=== PATIENT | male | born 1960 | race Caucasian/White ===

== ENCOUNTER 2020-06-04 18:32 | Emergency (ER) | payer OTHER, SELFPAY ==
[2020-06-04] VITALS (10 sets, daily range): BP systolic 140–165; BP diastolic 66–76; PULSE 52–64; RESP 14–22; TEMP 36.6; O2SAT 91–95
--- NOTE | 2020-06-04 18:40 | DI.RAD.S_ITS ---
PROCEDURE: XR CHEST 1V INDICATIONS: chest pain TECHNIQUE: One view of the chest was acquired. COMPARISON: [facility], CT, CT ANGIO NECK, 06/04/2020, 19:19. [facility], CR, XR CHEST 1 VIEW, 04/26/2020, 22:25. FINDINGS: Surgical changes and devices: None. Lungs and pleura: Prominent perihilar interstitial opacities are likely due to under penetration versus mild CHF. No pleural effusions or pneumothorax. Mediastinum: Mediastinal contours appear normal. Heart size is normal. Bones and chest wall: No suspicious bony lesions. Overlying soft tissues appear unremarkable. IMPRESSION: Prominent perihilar interstitial opacities are likely due to under penetration of the study, however mild CHF could also cause this appearance. Dictated by: Soren Garcia M.D. on 06/04/2020 at 19:43 Approved by: Soren Garcia M.D. on 06/04/2020 at 19:47
--- NOTE | 2020-06-04 18:54 | ED.GENADULT ---
HPI - General Adult General Chief complaint: Shortness of Breath/Dyspnea Stated complaint: THROAT IS TIGHT LUMP RIGHT SIDE, CHEST FEELS TIGHT Time Seen by Provider: 06/04/20 18:52 Source: patient Mode of arrival: Ambulatory Limitations: no limitations History of Present Illness HPI narrative: 59-year-old male who is on anticoagulation secondary to pulmonary embolisms here for evaluation of swelling the right side of his neck. States that he 1st noticed it this morning. Does have a fullness in this side. Still is having some shortness of breath but nothing new since his diagnosis of pulmonary embolism. His last INR check was approximately 1 week ago and it was slightly elevated and he was told to take half of his medication the next day and then restarted like normal. He did do this. He stated that in the past he has had a ?hematoma? on the right side of his neck that had to be drained. This was when he was not on anticoagulation and he was concerned that potentially that was what was going on today. Related Data Home Medications Medication Instructions Recorded Confirmed atorvastatin 10 mg PO DAILY 06/04/20 06/04/20 buprenorphine HCl 32 mg SUBLINGUAL DAILY 06/04/20 06/04/20 clonazepam 1 mg PO TID PRN 06/04/20 06/04/20 mirtazapine 30 mg PO DAILY 06/04/20 06/04/20 rizatriptan 10 mg PO DAILY PRN 06/04/20 06/04/20 testosterone cypionate See Rx Instructions .ROUTE .COMPLEX 06/04/20 06/04/20 warfarin 5 mg PO DAILY 06/04/20 06/04/20 Allergies Allergy/AdvReac Type Severity Reaction Status Date / Time No Known Drug Allergies Allergy Verified 06/04/20 19:13 Review of Systems Constitutional Constitutional: Denies fever(s) and Denies headache(s) ENT Ears, Nose, Mouth, and Throat: Denies dental pain, Denies vertigo, Denies dizziness, Denies headache(s), Reports neck mass, Denies sinus pressure and Reports throat swelling Cardiovascular Cardiovascular: Denies chest pain and Reports dyspnea Respiratory Respiratory: Reports dyspnea Musculoskeletal Musculoskeletal: Denies arthralgias and Denies myalgias Integumentary/Breasts Skin/Breast: Denies rash Neurologic Neurologic: Denies vertigo, Denies dizziness and Denies headache(s) Hematologic/Lymphatic On Anticoagulants: Yes Allergic/Immunologic Allergic/Immunologic: Denies urticaria and Reports throat swelling Patient History Medical History Migraine Pulmonary embolism Social History lives independently: Yes Exam Initial Vital Signs Initial Vital Signs: Vital Signs Pulse Rate 64 06/04/20 18:41 Pulse Oximetry 95 06/04/20 18:41 Const General: cooperative and comfortable Limitations: mental status not altered HENAL Head: normal to inspection and normocephalic Neck Neck: No anterior neck swelling, No tender, No torticollis and No tracheal deviation Lymphatic: No lymphadenopathy Other: Does have a fullness feeling on the right inferior portion of his neck that is soft. Hard to differentiate the edges. Chest Chest: No crepitus and No tenderness Resp Effort & Inspection: normal respiratory effort Auscultation: clear to auscultation bilaterally Cardio Rate: regular rate Rhythm: regular rhythm Skin Lesions: no lesions Rashes: no rashes Extrem General: normal to inspection and capillary refill normal Psych Appearance: grossly normal and well kempt Course Orders Ordered: ED Orders 06/04/20 15:48 COVID19 Stat 06/04/20 18:40 XR chest 1V Stat EKG-12 Lead Stat 06/04/20 18:45 Complete Blood Count AUTO DIFF Stat Comprehensive Metabolic Panel Stat Lipase Stat Partial Thromboplastin Time Stat Prothrombin Time INR Stat Troponin & CK Cardiac Panel Stat Type and Screen Stat 06/04/20 18:54 CT angio neck Stat Vital Signs Vital signs: Vital Signs - 8 hr 06/04/20 18:41 06/04/20 18:45 06/04/20 18:47 Temperature Pulse Rate 64 59 L 60 Respiratory Rate 21 Blood Pressure 152/72 H Pulse Oximetry 95 95 95 06/04/20 18:52 06/04/20 19:00 06/04/20 19:15 Temperature 97.9 F Pulse Rate 57 L 57 L 55 L Respiratory Rate 22 14 14 Blood Pressure 152/72 H 146/72 H 140/75 Pulse Oximetry 91 93 92 06/04/20 19:33 06/04/20 19:34 06/04/20 19:45 Temperature Pulse Rate 54 L 53 L 52 L Respiratory Rate 15 16 Blood Pressure 165/76 H Pulse Oximetry 95 94 93 06/04/20 19:46 Temperature Pulse Rate 54 L Respiratory Rate 18 Blood Pressure 146/66 H Pulse Oximetry 93 Medical Decision Making Lab Data Lab results reviewed: Yes I reviewed the patient's lab results. Result diagrams: 06/04/20 18:45 06/04/20 18:45 Labs: Lab Results 06/04/20 06/04/20 06/04/20 Range/Units 15:48 18:45 18:45 WBC 7.3 (4.5-11.0) X10^3/uL RBC 5.09 (4.5-5.9) X10^6/uL Hgb 15.9 (13.5-17.5) g/dL Hct 45.9 (41-53) % MCV 90.3 (80-100) fL MCH 31.3 (26-34) PG MCHC 34.7 (30-36) % RDW 13.2 (11.6-14.8) % Plt Count 226 (150-400) X10^3/uL Neut % (Auto) 54.9 (50-75) % Lymph % (Auto) 33.4 (25-40) % [place] % (Auto) 8.2 (3-14) % Eos % (Auto) 2.8 (2-4) % Baso % (Auto) 0.7 (0-2) % Neut # (Auto) 4000 (9533-4581) /uL Lymph # (Auto) 2500 (8520-4873) /uL [place] # (Auto) 600 (0-900) /uL Eos # (Auto) 200 (0-450) /uL Baso # (Auto) 100 (0-100) /uL PT 41.7 H (10.1-12.7) SECONDS INR 3.6 H (0.9-1.3) APTT 72 H (26.4-36.2) SECONDS Sodium (137-145) mmol/L Potassium (3.4-5.1) mmol/L Chloride (98-107) mmol/L Carbon Dioxide (22-32) mmol/L BUN (9-20) mg/dL Creatinine (0.66-1.25) mg/dL Estimated GFR (>60) mL/min BUN/Creatinine Ratio (6-22) Glucose (70-100) mg/dL Calcium (8.4-10.2) mg/dL Total Bilirubin (0.2-1.3) mg/dL AST (17-59) IU/L ALT (<50) IU/L Alkaline Phosphatase (38-126) U/L Total Creatine Kinase (55-170) U/L CK-MB (CK-2) (<2.37) ng/mL CK-MB (CK-2) Rel Index (1.5-5.0) % Troponin I (0.01-0.034) ng/mL Total Protein (6.3-8.2) g/dL Albumin (3.5-5.0) g/dL Globulin (1.7-4.1) g/dL Albumin/Globulin Ratio (1.0-2.8) Lipase (23-300) U/L SARS-CoV-2 (PCR) Negative (Negative) Blood Type Antibody Screen 06/04/20 06/04/20 Range/Units 18:45 18:45 WBC (4.5-11.0) X10^3/uL RBC (4.5-5.9) X10^6/uL Hgb (13.5-17.5) g/dL Hct (41-53) % MCV (80-100) fL MCH (26-34) PG MCHC (30-36) % RDW (11.6-14.8) % Plt Count (150-400) X10^3/uL Neut % (Auto) (50-75) % Lymph % (Auto) (25-40) % [place] % (Auto) (3-14) % Eos % (Auto) (2-4) % Baso % (Auto) (0-2) % Neut # (Auto) (0382-9323) /uL Lymph # (Auto) (6588-8885) /uL [place] # (Auto) (0-900) /uL Eos # (Auto) (0-450) /uL Baso # (Auto) (0-100) /uL PT (10.1-12.7) SECONDS INR (0.9-1.3) APTT (26.4-36.2) SECONDS Sodium 136 L (137-145) mmol/L Potassium 3.9 (3.4-5.1) mmol/L Chloride 99 (98-107) mmol/L Carbon Dioxide 30 (22-32) mmol/L BUN 18 (9-20) mg/dL Creatinine 1.08 (0.66-1.25) mg/dL Estimated GFR > 60.0 (>60) mL/min BUN/Creatinine Ratio 16.7 (6-22) Glucose 165 H (70-100) mg/dL Calcium 9.3 (8.4-10.2) mg/dL Total Bilirubin 0.7 (0.2-1.3) mg/dL AST 40 (17-59) IU/L ALT 47 (<50) IU/L Alkaline Phosphatase 104 (38-126) U/L Total Creatine Kinase 144 (55-170) U/L CK-MB (CK-2) 0.78 (<2.37) ng/mL CK-MB (CK-2) Rel Index 0.5 L (1.5-5.0) % Troponin I < 0.012 (0.01-0.034) ng/mL Total Protein 8.2 (6.3-8.2) g/dL Albumin 4.6 (3.5-5.0) g/dL Globulin 3.6 (1.7-4.1) g/dL Albumin/Globulin Ratio 1.3 (1.0-2.8) Lipase 27 (23-300) U/L SARS-CoV-2 (PCR) (Negative) Blood Type O Negative Antibody Screen Negative Imaging Data Chest x-ray: Radiologist's Impression: [address] [id number] ReportSigned Patient: Hong Herron R#: [id number]: 2Acct:[id number]/Sex: 59 / MDate of Service: 06/04/20Loc: EDAccession Number: [id number] Procedure: XR chest 1V Ordering Provider: Evan Gutierrez D.O. PROCEDURE: XR CHEST 1V INDICATIONS: chest pain TECHNIQUE: One view of the chest was acquired. COMPARISON: [facility], CT, CT ANGIO NECK, 06/04/2020, 19:19. [facility], CR, XR CHEST 1 VIEW, 04/26/2020, 22:25. FINDINGS: Surgical changes and devices: None. Lungs and pleura: Prominent perihilar interstitial opacities are likely due to under penetration versus mild CHF. No pleural effusions or pneumothorax. Mediastinum: Mediastinal contours appear normal. Heart size is normal. Bones and chest wall: No suspicious bony lesions. Overlying soft tissues appear unremarkable. IMPRESSION: Prominent perihilar interstitial opacities are likely due to under penetration of the study, however mild CHF could also cause this appearance. Dictated by: Soren Garcia M.D. on 06/04/2020 at 19:43 Approved by: Soren Garcia M.D. on 06/04/2020 at 19:47 CTA of neck: Radiologist's Impression: [address] [id number] Scan ReportSigned Patient: Hong Herron VMR#: [id number]: [id number]:[id number]/Sex: 59 / MDate of Service: 06/04/20Loc: EDAccession Number: [id number] Procedure: CT angio neck Ordering Provider: Evan Gutierrez D.O. PROCEDURE: CT ANGIO NECK INDICATIONS: Right side neck swelling TECHNIQUE: After the administration of intravenous contrast, 1.5 mm axial sections acquired from the aortic arch to the [place] of [place]. Maximum intensity projection (MIP) reformats were then performed. COMPARISON: [facility], CT, CT ANGIO CHEST PE, 04/26/2020, 22:40. FINDINGS: Image quality: Excellent. Carotid system: The great vessels demonstrate a conventional anatomy as they arise from the aortic arch. The origins of the common carotid arteries appear patent. The common carotid arteries demonstrate normal calibers and courses. The bifurcation regions appear normal bilaterally. The internal carotid arteries demonstrate normal caliber and course. Posterior circulation: The origins of the vertebral arteries appear patent. The more superior portions of the vertebral arteries demonstrate normal course and caliber. They join to form a normal appearing basilar artery. Soft tissues: Visualized neck soft tissues demonstrate no suspicious abnormalities. Thyroid gland demonstrates a 1.4 x 1.4 x 2.0 centimeter hypodensity. Recommend thyroid ultrasound. The lungs demonstrate subtle diffuse patchy ground-glass opacities which is nonspecific and is probably due to respiratory motion. Bones: No suspicious bony lesions. Visualized cervical spine appears normally aligned. IMPRESSION: 1. No neck mass or other abnormality to explain right-sided neck swelling. 2. Right thyroid nodule as above. Recommend thyroid ultrasound. Any quantitative stenosis measurements were performed using the NASCET criteria. Dictated by: Soren Garcia M.D. on 06/04/2020 at 19:48 Approved by: Soren Garcia M.D. on 06/04/2020 at 19:54 ECG Data Attestation: I personally reviewed and interpreted this ECG as follows: Prior ECG tracings: not available for review Interpretation: Sinus rhythm Left axis deviation Left anterior fascicular block Ventricular rate is [address] T wave changes MDM Narrative Medical decision making narrative: Patient is not in respiratory distress. He does have a fullness on the right inferior portion of his neck where he states he feels the symptoms that brought him in today. The CT scan of his neck shows no signs of abscess. Shows no signs of hematoma. Does show a right sided thyroid nodule which I did discuss with him and told him he need to talk with his primary doctor regarding this to discuss further workup to include ultrasound. His INR was elevated today. He states that was very similar to what was 1 week ago. He is going to skip his dose of Coumadin tomorrow and then restarted it like normal and then talk with his provider about retesting. His fullness in his neck could potentially be the thyroid nodule. He is tolerating oral secretions. Feel we can discharge patient home and have him follow up and he was given return precautions and follow-up instructions. He expressed understanding and agreement. Discharge Plan Departure Patient Disposition: Home Clinical Impression: Thyroid nodule, Supratherapeutic INR Instructions: DI for Thyroid Nodule Activity Restrictions/Additional Instructions: I recommend that you contact your primary doctor to discuss the indications for an outpatient thyroid ultrasound. Your INR was also elevated today. I recommend you skip your dose tomorrow and then on start taking it like normal. Keep all of your schedule medical appointments. Return to the emergency department for any new or worsening symptoms Prescriptions: No Action atorvastatin 10 mg tablet 10 mg PO DAILY RF: 0 rizatriptan 10 mg tablet 10 mg PO DAILY PRN (Reason: Migraine Headache) RF: 0 clonazepam 1 mg tablet 1 mg PO TID PRN (Reason: Anxiety) RF: 0 warfarin 2.5 mg tablet 5 mg PO DAILY RF: 0 mirtazapine 30 mg tablet 30 mg PO DAILY RF: 0 testosterone cypionate 200 mg/mL oil See Rx Instructions .ROUTE .COMPLEX RF: 0 buprenorphine HCl 8 mg tablet, sublingual 32 mg SUBLINGUAL DAILY RF: 0
[2020-06-04 18:56] LABS: Add Manual Diff / Slide Review NO; Basophils Absolute Auto 100 /uL (0-100); Basophils Percent Auto 0.7 % (0-2); Eosinophils Absolute Auto 200 /uL (0-450); Eosinophils Percent Auto 2.8 % (2-4); Hematocrit 45.9 % (41-53); Hemoglobin 15.9 g/dL (13.5-17.5); Lymphocytes Absolute Auto 2500 /uL (1100-4500); Lymphocytes Percent Auto 33.4 % (25-40); Mean Corpuscular HGB Conc 34.7 % (30-36); Mean Corpuscular Hemoglobin 31.3 PG (26-34); Mean Corpuscular Volume 90.3 fL (80-100); Monocytes Absolute Auto 600 /uL (0-900); Monocytes Percent Auto 8.2 % (3-14); Neutrophils Absolute Auto 4000 /uL (1500-7000); Neutrophils Percent Auto 54.9 % (50-75); Platelet Count 226 X10^3/uL (150-400); Red Blood Cell Count 5.09 X10^6/uL (4.5-5.9); Red Cell Distribution Width 13.2 % (11.6-14.8); White Blood Cell Count 7.3 X10^3/uL (4.5-11.0)
--- NOTE | 2020-06-04 18:56 | PC.NURSE ---
Swelling to right neck appreciated by palpation. No JVD, No airway obstructions. Pt states that he had difficulty swallowing earlier this evening. Tolerating his own secretions.
[2020-06-04 19:05] LABS: INR 3.6 (0.9-1.3); Prothrombin Time 41.7 SECONDS (10.1-12.7)
[2020-06-04 19:11] LABS: COVID19 -Nasal RAPID Negative (Negative)
[2020-06-04 19:13] LABS: Alanine Aminotransferase 47 IU/L (<50); Albumin 4.6 g/dL (3.5-5.0); Albumin Globulin Ratio 1.3 (1.0-2.8); Alkaline Phosphatase 104 U/L (38-126); Aspartate Aminotransferase 40 IU/L (17-59); BUN Creatinine Ratio 16.7 (6-22); Bilirubin Total 0.7 mg/dL (0.2-1.3); Blood Urea Nitrogen 18 mg/dL (9-20); Calcium 9.3 mg/dL (8.4-10.2); Carbon Dioxide 30 mmol/L (22-32); Chloride 99 mmol/L (98-107); Creatine Kinase 144 U/L (55-170); Estimated Glomerular Filt Rate > 60.0 mL/min (>60); Globulin 3.6 g/dL (1.7-4.1); Glucose 165 mg/dL (70-100); HEMOLYSIS 19 (0-50); Lipase 27 U/L (23-300); Potassium 3.9 mmol/L (3.4-5.1); Sodium 136 mmol/L (137-145); Total Protein 8.2 g/dL (6.3-8.2)
[2020-06-04 19:17] LABS: PTT Partial Thromboplastin Tim 72 SECONDS (26.4-36.2)
[2020-06-04 19:25] LABS: Troponin I < 0.012 ng/mL (0.01-0.034)
[2020-06-04 19:28] LABS: CKMB % Relative Index 0.5 % (1.5-5.0); Creatine Kinase MB 0.78 ng/mL (<2.37)
== END 2020-06-04 20:25 | disposition home or self-care (01) ==
PROVIDERS: Emergency Provider Emergency Medicine
DX: E04.1 Nontoxic single thyroid nodule (principal); R79.1 Abnormal coagulation profile; R07.9 Chest pain, unspecified; I26.99 Other pulmonary embolism without acute cor pulmonale; Z79.01 Long term (current) use of anticoagulants; R06.02 Shortness of breath; Z20.822 Contact with and (suspected) exposure to COVID-19
CPT/HCPCS: 36415; 70498; 71045; 80053; 82550; 82553; 83690; 84484; 85025; 85610; 85730; 86850; 86900; 86901; 87635; 93005; 93010; 99284; C9803; Q9967